=== PATIENT | female | born 1980 | race African-American/Black ===

== ENCOUNTER 2017-01-07 17:56 | Observation (INO) | payer OTHER ==
[~2017-01-07] VITALS: Ht 152.4 cm; Wt 53.5 kg
[~2017-01-07 17:56] MED LIST: EFFSR75 PO; INSDGI SQ; LSN5 PO
[2017-01-07] MEDS ORDERED: NITROGLYCERIN 0.4 MG SL PER TAB CHARGE SL PRN ×2 (18:45→20:45)
[2017-01-07 18:48] LABS: BASO % 0.5 %; BASO ABS # 0.04 K/uL (0-0.2); COMPLETE YES; EOS % 1.9 %; HEMATOCRIT 45.4 % (37-47); IG% 0.6 %; LYMPH % 23.2 %; LYMPH ABS # 1.99 K/uL (1.2-3.4); MEAN CELL VOLUME 91.2 fL (80-100); MEAN CORPUSCULAR HEMOGLOBIN 31.7 pg (25-34); MEAN CORPUSCULAR HGB CONC 34.8 g/dl (32-36); NEUT % 68.8 %; PLATELET COUNT 399 K/uL (130-400); RED BLOOD COUNT 4.98 M/uL (4.2-5.4); WHITE BLOOD COUNT 8.57 K/uL (4.8-10.8)
[2017-01-07] MEDS ORDERED: NITROGLYCERIN OINT 2% 1GM PACKET EXT ONE (19:00)
--- NOTE | 2017-01-07 19:06 | DIAGNOSTIC IMAGING REPORT ---
CHEST ONE VIEW PORTABLE CLINICAL HISTORY: Atypical chest pain and shortness of breath. COMPARISON STUDY: No previous studies for comparison. FINDINGS: The cardiac and mediastinal contours are normal. There is no evidence of focal pulmonary consolidation. There is no evidence of failure. No pleural effusions are visualized.[ IMPRESSION: No active disease in the chest. Electronically signed by: Landon Alford M.D. 01/07/2017 7:04 PM Dictated Date/Time: 01/07/2017 7:04 PM
[2017-01-07 19:07] LABS: BUN/CREATININE RATIO 8.1 (10-20); CALCIUM 9.3 mg/dl (8.5-10.1); CREATININE 0.85 mg/dl (0.60-1.20); POTASSIUM 3.3 mmol/L (3.5-5.1); PREG INTERNAL NEGATIVE QC NEG CLEAR BACKGROUND; PREG INTERNAL POSITIVE QC POS CONTROL LINE
[2017-01-07] MEDS ORDERED: VNTHFA/IN INH (19:07)
[2017-01-07] MEDS ORDERED: MTHI50 INJ (19:07)
[2017-01-07 19:16] LABS: BETA-HYDROXYBUTYRATE 1.12 mg/dL (0.2-2.81)
[2017-01-07] MEDS ORDERED: ASPIRIN 81 MG CHEW PO STA (19:50)
[2017-01-07] MEDS ORDERED: POTASSIUM CHLORIDE 10 MEQ TABCR PO STA (20:10)
[2017-01-07] MEDS ORDERED: INSULIN GLARGINE SOLOSTAR 100 UNITS/ML 3 ML PEN SC ONE (20:39)
[2017-01-07] MEDS ORDERED: DEXTROSE 50% 50 ML SYR IV PRN (20:45)
[2017-01-07] MEDS ORDERED: GLUCOSE 10 TABS/TUBE PO PRN (20:45)
[2017-01-07] MEDS ORDERED: TRAMADOL HCL 50 MG TAB PO PRN (20:45)
[2017-01-07] MEDS ORDERED: GLUCAGON FOR INJ 1 MG VIAL SQ PRN (20:45)
[2017-01-07] MEDS ORDERED: LORAZEPAM 2 MG/ML 1 ML VIAL IV PRN (20:45)
[2017-01-07] MEDS ORDERED: MoRPHine SULFATE 2 MG/ML CARP IV PRN (20:45)
[2017-01-07] MEDS ORDERED: ONDANSETRON INJ 2 MG/ML 2 ML VIAL IV PRN (20:45)
[2017-01-07] MEDS ORDERED: ACETAMINOPHEN 325 MG TAB PO PRN (20:45)
[2017-01-07] MEDS ORDERED: GLUCOSE 40% GEL 15 GM TUBE PO PRN (20:45)
[2017-01-07] MEDS ORDERED: LANTUS PER UNIT CHARGE SQ ONE (21:00)
[2017-01-07] MEDS ORDERED: IV FLUIDS COMPLETED PRN (21:15)
--- NOTE | 2017-01-07 22:18 | HISTORY & PHYSICAL EXAMINATION ---
DATE OF ADMISSION: 01/07/2017 PRIMARY CARE DOCTOR: Dr. Sin History was obtained from the patient and records. CHIEF COMPLAINT: Chest pain. HISTORY OF PRESENT ILLNESS: Medical history is significant for DM type 1, hypertension, hyperlipidemia, psoriatic arthritis on methotrexate therapy, ongoing tobacco abuse. Patient was playing cards today with a friend. Patient noted left-sided chest discomfort, sharp, going to the left arm. Has dry cough symptoms. No previous episodes. Relief with nitroglycerin. SBP 170s in the ER initially. Patient does not check blood pressures at home. MEDICAL HISTORY: As above. Home Blood sugars 300. SURGICAL HISTORY: Dental surgery. HOME MEDICATIONS: Lisinopril, aspirin, folic acid, betamethasone, Ventolin, Lipitor and methotrexate. ALLERGIES: TO NIACIN. FAMILY HISTORY: Heart disease. PERSONAL AND SOCIAL HISTORY: A cigarette a day. No chronic intake of alcoholic beverages. Unemployed. REVIEW OF SYSTEMS: As per HPI, all other ROS negative. PHYSICAL EXAMINATION: VITAL SIGNS: Blood pressure was noted to be 177/108 later 130/80, pulse rate 96, RR 20 T 37 O2 sats 98 on room air. GENERAL: Slightly anxious, hyposthenic. No respiratory distress. SKIN: Normal color. HEENT: [place] palpebral conjunctivae. Dry mucosa. NECK: No JVD. Supple. CHEST: Clear to auscultation. HEART: Regular rate and rhythm. ABDOMEN: Soft. EXTREMITIES: No edema, no tenderness. NEUROLOGIC: No gross focality. LABORATORIES: Hemoglobin was noted to be 15.8, hematocrit 45.4 white cell count 10 platelets 399. Sodium 140, potassium 3.3, chloride 100 CO2 32, BUN 7, creatinine 0.8 and glucose was noted to be 317. Troponin 0. D-dimer was normal. Hemoglobin A1c from March 2016 was 12.7. EKG as per my interpretation : T-wave inversions in inferior and anterolateral leads. Chest x-ray : no infiltrate. ASSESSMENT: 1. Chest pain poss from hypertensive urgency ro ACS 2. DM 1 suboptimal control as of recent outpx HgA1c 3. hypokalemia possibly from home insulin tx 4. hyperlipidemia on statin therapy 5. ongoing tobacco abuse 6. psoriatic arthritis on MTRX tx PLAN: Observation PCU continue home ASA for now for CAD prevention until ACS ruled out. facilitate ACEI, may need dose adjustment Follow troponin. drug stress test if AM troponin WNL (px does not think she can run the treadmill ) Cardiology consultation if with troponin elevation. (px's family requesting of [facility] should need arise) replace potassium. Basal insulin, ISS BG goal 140-180. Carb count coverage indicated for suboptimal blood sugar control. px due for HgA1c. Lipid profile. May need diabetic education if HgA1c worse than outpx. PX counseled to stop smoking. DVT prophylaxis, SCDs. Full code. MTDD
[2017-01-07 22:26] VITALS: BP 151/97; PULSE 86; TEMP 36.8; O2SAT 95; BMI 23.4
[2017-01-07] MEDS ORDERED: LORAZEPAM INJ 0.5 MG in SYRINGE 0.75 ML IV PRN (22:30)
[2017-01-07] MEDS ORDERED: INSU100I2 SC (22:36)
[2017-01-07] MEDS ORDERED: ATOR-24 PO (22:36)
[2017-01-07] MEDS: LACTATED RINGER'S 1000ML 1,000 ML IV SCH (22:39)
[2017-01-07 23:40] LABS: PARTIAL THROMBOPLASTIN RATIO 1.1
[2017-01-07] MEDS: INSULIN ASPART 100 UNITS/ML 3 ML PEN SC SCH (23:47)
[2017-01-08] VITALS (7 sets, daily range): BP systolic 107–137; BP diastolic 71–89; PULSE 59–85; TEMP 36.4–36.8; O2SAT 96–100; Ht 152.4 cm; Wt 53.5 kg
--- NOTE | 2017-01-08 01:25 | EMERGENCY ROOM VISIT NOTE ---
History Report prepared by Miranda: Trevon Witt Under the Supervision of: Dr. Placido Sanchez M.D. First contact with patient: 18:27 Chief Complaint: CHEST PAIN Stated Complaint: CHEST PAINS,SHORT OF BREATH Nursing Triage Summary: Pt presents with CP starting today, stabbing like pain radiating into left arm. Denies cardiac hx. History of Present Illness The patient is a 36 year old female who presents to the Emergency Room with complaints of worsening left sided chest pain starting today. She describes it as a stabbing pain. She has worsening pain with deep breathing. She was sitting at the table and playing cards when she had an onset of her symptoms. She currently rates a pain intensity of 8/10. She also complains of a cough. She denies any history of similar symptoms. She has a history of diabetes. The patient's mother had a heart attack in her 50s. The patient is a current smoker. Her last normal menstrual period was last week. Pt denies LOC, headache, fevers, chills, diaphoresis, visual changes, neck pain , tearing pain radiating to the back, personal history or family history of aneurysm or pulmonary embolism, uncontrolled hypertension, breathing difficulties, leg swelling, coagulation abnormalities, prolonged travel, recent surgery or immobilization, nausea, vomiting, abdominal pain, melena, hematochezia, urinary symptoms, numbness, weakness, lymphadenopathy, rash, or other complaints. Source of History: patient Onset: today Position: chest (left) Symptom Intensity: 8/10 Quality: stabbing Timing: worsening Associated Symptoms: + cough Review of Systems See HPI for pertinent positives and negatives. A total of ten systems were reviewed and were otherwise negative. Past Medical & Surgical Medical Problems: (1) Cervical muscle strain (2) Chest pain (3) Closed head injury (4) Diabetes (5) Hypertension (6) Psoriasis Family History Diabetes mellitus Hypertension Social History Smoking Status: Current Every Day Smoker Marital Status: single Housing Status: unknown Occupation Status: employed Current/Historical Medications Scheduled Atorvastatin (Lipitor), 40 MG PO DAILY Insulin Glargine (Lantus), 50 UNITS SQ HS Insulin Lispro (Human) (Humalog Kwikpen), 1 DOSE SC ACHS Lisinopril (Lisinopril), 5 MG PO DAILY Methotrexate (Methotrexate Sodium), 40 MG INJ WK Scheduled PRN Albuterol Hfa (Ventolin Hfa), 2 PUFFS INH QID PRN for SOB/Wheezing Allergies Coded Allergies: Niacin (Verified Allergy, Unknown, rash, 09/19/14) Physical Exam Vital Signs Date Time Temp Pulse Resp B/P Pulse Ox O2 Delivery O2 Flow Rate FiO2 01/07/17 20:01 141/94 01/07/17 19:31 151/96 01/07/17 19:30 77 26 97 01/07/17 19:21 78 18 152/96 97 Room Air 01/07/17 19:16 83 01/07/17 18:46 96 21 149/94 100 01/07/17 18:42 99 Room Air 01/07/17 17:59 36.9 93 20 177/108 99 Room Air Physical Exam GENERAL: Awake, alert, uncomfortable-appearing, in no distress HENT: Normocephalic, atraumatic. Oropharynx unremarkable. EYES: Normal conjunctiva. Sclera non-icteric. NECK: Supple. No nuchal rigidity. FROM. No JVD. RESPIRATORY: Clear to auscultation. CARDIAC: Regular rate, normal rhythm. Extremities warm and well perfused. Pulses equal. ABDOMEN: Soft, non-distended. No tenderness to palpation. No rebound or guarding. No masses. RECTAL: Deferred. MUSCULOSKELETAL: Chest examination reveals left sided tenderness. The back is symmetrical on inspection without obvious abnormality. There is no CVA tenderness to palpation. No joint edema. LOWER EXTREMITIES: Calves are equal size bilaterally and non-tender. No edema. No discoloration. NEURO: Normal sensorium. No sensory or motor deficits noted. SKIN: No jaundice noted. Psoriasis type rash in lower extremities. Medical Decision & Procedures ER Provider Diagnostic Interpretation: X-ray: Per my interpretation, radiologist review. CHEST ONE VIEW PORTABLE CLINICAL HISTORY: Atypical chest pain and shortness of breath. COMPARISON STUDY: No previous studies for comparison. FINDINGS: The cardiac and mediastinal contours are normal. There is no evidence of focal pulmonary consolidation. There is no evidence of failure. No pleural effusions are visualized.[ IMPRESSION: No active disease in the chest. Electronically signed by: Landon Alford M.D. 01/07/2017 7:04 PM Dictated Date/Time: 01/07/2017 7:04 PM Laboratory Results 01/07/17 18:34 Red Blood Count 4.98, Mean Corpuscular Volume 91.2, Mean Corpuscular Hemoglobin 31.7, Mean Corpuscular Hemoglobin Concent 34.8, Mean Platelet Volume 10.0, Neutrophils (%) (Auto) 68.8, Lymphocytes (%) (Auto) 23.2, Monocytes (%) (Auto) 5.0, Eosinophils (%) (Auto) 1.9, Basophils (%) (Auto) 0.5, Neutrophils # (Auto) 5.90, Lymphocytes # (Auto) 1.99, Monocytes # (Auto) 0.43, Eosinophils # (Auto) 0.16, Basophils # (Auto) 0.04 01/07/17 18:34 Test 01/07/17 18:34 01/07/17 18:40 White Blood Count 8.57 K/uL (4.8-10.8) Red Blood Count 4.98 M/uL (4.2-5.4) Hemoglobin 15.8 g/dL (12.0-16.0) Hematocrit 45.4 % (37-47) Mean Corpuscular Volume 91.2 fL (80-100) Mean Corpuscular Hemoglobin 31.7 pg (25-34) Mean Corpuscular Hemoglobin Concent 34.8 g/dl (32-36) Platelet Count 399 K/uL (130-400) Mean Platelet Volume 10.0 fL (7.4-10.4) Neutrophils (%) (Auto) 68.8 % Lymphocytes (%) (Auto) 23.2 % Monocytes (%) (Auto) 5.0 % Eosinophils (%) (Auto) 1.9 % Basophils (%) (Auto) 0.5 % Neutrophils # (Auto) 5.90 K/uL (1.4-6.5) Lymphocytes # (Auto) 1.99 K/uL (1.2-3.4) Monocytes # (Auto) 0.43 K/uL (0.11-0.59) Eosinophils # (Auto) 0.16 K/uL (0-0.5) Basophils # (Auto) 0.04 K/uL (0-0.2) RDW Standard Deviation 42.4 fL (36.4-46.3) RDW Coefficient of Variation 12.8 % (11.5-14.5) Immature Granulocyte % (Auto) 0.6 % Immature Granulocyte # (Auto) 0.05 K/uL (0.00-0.02) Anion Gap 7.0 mmol/L (3-11) Est Creatinine Clear Calc Drug Dose 78.2 ml/min Estimated GFR () 102.9 Estimated GFR (Non- 88.8 BUN/Creatinine Ratio 8.1 (10-20) Calcium Level 9.3 mg/dl (8.5-10.1) Magnesium Level 2.2 mg/dl (1.8-2.4) Total Bilirubin 0.8 mg/dl (0.2-1) Direct Bilirubin 0.1 mg/dl (0-0.2) Aspartate Amino Transf (AST/SGOT) 7 U/L (15-37) Alanine Aminotransferase (ALT/SGPT) 15 U/L (12-78) Alkaline Phosphatase 76 U/L (45-117) Total Creatine Kinase 86 U/L (26-192) Creatine Kinase MB 0.9 ng/ml (0.5-3.6) Creatine Kinase MB Ratio 1.0 (0-3.0) Total Protein 8.4 gm/dl (6.4-8.2) Albumin 4.4 gm/dl (3.4-5.0) Lipase 103 U/L (73-393) Beta-Hydroxybutyric Acid 1.12 mg/dL (0.2-2.81) Thyroid Stimulating Hormone (TSH) 0.535 uIu/ml (0.300-4.500) Human Chorionic Gonadotropin, Qual NEG (NEG) Bedside D-Dimer 154 ng/mlFEU (0-450) Bedside Troponin I 0.000 ng/ml (0-0.045) Laboratory results reviewed by me Medications Administered Medications (Trade) Dose Ordered Sig/Catihe Route Start Time Stop Time Status Last Admin Dose Admin Nitroglycerin (Nitrostat Tab) 0.4 mg Q5M PRN SL 01/07/17 18:45 01/07/17 20:11 DC 01/07/17 18:42 0.4 MG Nitroglycerin (Nitroglycerin 2% Oint) 0.5 inch NOW ONCE EXT 01/07/17 19:00 01/07/17 20:11 DC 01/07/17 19:19 0.5 INCH Aspirin (Aspirin Chew) 324 mg NOW STAT PO 01/07/17 19:50 01/07/17 19:51 DC 01/07/17 20:42 324 MG Potassium Chloride (Klor-Con M10) 40 meq NOW STAT PO 01/07/17 20:10 01/07/17 20:23 DC 01/07/17 20:42 40 MEQ ECG Indication: chest pain Rate (beats per minute): 81 Rhythm: normal sinus Findings: T-wave inversion (inferior and anterior), no ectopy Comparison ECG Date: October 25, 2008 Change: T wave inversions anteriorly are new and much more pronounced inferiorly when compared to October 25, 2008. ED Course 1826: The patient was evaluated in room B08. A complete history and physical exam was performed. Blood pressure screening: Patient was found to have an elevated blood pressure and was referred to their primary doctor for recheck and further treatment. Medication Reconciliation: I attest that I have personally reviewed the patient' s current medication list 1845: Nitroglycerin 0.4 mg SL 1899: Nitroglycerin 0.5 inch EXT 1900: The patient's chest pain is gone after receiving Nitro. 1950: Aspirin 324 mg PO 2009: Potassium Chloride 40 meq PO 2000: Upon reexamination, the patient was resting comfortably. I discussed the test results and treatment plan with her. I discussed the patient's case with Dr. Aquino, from [facility]. The patient will be evaluated for further management. Medical Decision Triage Nursing notes reviewed. The patient's presentation and history were concerning for chest pain. Etiologies such as cardiac ischemia, aortic dissection, pulmonary embolism, pneumonia, pneumothorax, musculoskeletal, infections, gastrointestinal, as well as others were entertained. The patient was evaluated. Clinically she was doing well but was hypertensive and expressing left-sided pain. ECG was performed was concerning for possible ischemic change. She had no prior ECGs available here so I did obtain an ECG done at the [facility] through case management. This did reveal concerning findings with regards to the ECG today. The patient was given nitroglycerin 2 and the pain resolved. She was reassessed. She was given aspirin. Nitroglycerin paste was applied. Chest imaging was unremarkable. The patient's troponin, d-dimer, CBC and other testing were unremarkable. The patient was mildly hyperglycemic. Consultation was made with internal medicine. The patient was evaluated in the Emergency Room for further management. Consults Time Called: 1948 Consulting Physician: Dr. Aquino, from [facility] Returned Call: 1999 I discussed the patient's case with Dr. Aquino, from [facility]. Impression Primary Impression: Left sided chest pain Additional Impressions: Acute electrocardiogram changes Hypertensive crisis Scribe Attestation The scribe's documentation has been prepared under my direction and personally reviewed by me in its entirety. I confirm that the note above accurately reflects all work, treatment, procedures, and medical decision making performed by me. Departure Information Dispostion Being Evaluated By Hospitalist Referrals No Doctor, Assigned (PCP) Patient Instructions [facility] Problem Qualifiers
[2017-01-08 05:00] LABS: BASO % 0.6 %; BASO ABS # 0.05 K/uL (0-0.2); COMPLETE YES; EOS % 2.6 %; IG% 0.1 %; LYMPH % 27.7 %; LYMPH ABS # 2.22 K/uL (1.2-3.4); MEAN CELL VOLUME 91.1 fL (80-100); MEAN PLATELET VOLUME 9.5 fL (7.4-10.4); MONO % 5.7 %; NEUT % 63.3 %; PLATELET COUNT 336 K/uL (130-400); RED BLOOD COUNT 4.39 M/uL (4.2-5.4); WHITE BLOOD COUNT 8.01 K/uL (4.8-10.8)
[2017-01-08 05:10] LABS: ESTIMATED AVERAGE GLUCOSE 263 mg/dl; HA1C FLAG Normal (Normal)
[2017-01-08] MEDS: INSULIN ASPART 100 UNITS/ML 3 ML PEN SC SCH ×3 (08:16→17:06)
[2017-01-08 08:46] LABS: BASO % 0.7 %; BASO ABS # 0.06 K/uL (0-0.2); COMPLETE YES; EOS % 2.2 %; HEMATOCRIT 42.5 % (37-47); IG% 0.1 %; LYMPH % 22.8 %; LYMPH ABS # 1.85 K/uL (1.2-3.4); MEAN CELL VOLUME 91.8 fL (80-100); MEAN CORPUSCULAR HEMOGLOBIN 30.9 pg (25-34); MEAN CORPUSCULAR HGB CONC 33.6 g/dl (32-36); MONO % 5.8 %; NEUT % 68.4 %; PLATELET COUNT 339 K/uL (130-400); RED BLOOD COUNT 4.63 M/uL (4.2-5.4); WHITE BLOOD COUNT 8.13 K/uL (4.8-10.8)
[2017-01-08] MEDS ORDERED: ASPIRIN 325 MG ECTAB PO SCH (09:00)
[2017-01-08] MEDS ORDERED: LISINOPRIL 5 MG TAB PO SCH (09:00)
[2017-01-08] MEDS ORDERED: ATORVASTATIN 20 MG TAB PO SCH (09:00)
[2017-01-08] MEDS ORDERED: INSULIN GLARGINE SOLOSTAR 100 UNITS/ML 3 ML PEN SC SCH (09:00)
[2017-01-08 09:11] LABS: CARBON DIOXIDE 30 mmol/L (21-32); CHLORIDE 106 mmol/L (98-107); CHOLESTEROL 222 mg/dl (0-200); CREATININE 0.76 mg/dl (0.60-1.20); GLUCOSE 207 mg/dl (70-99); POTASSIUM 3.7 mmol/L (3.5-5.1); SODIUM 144 mmol/L (136-145); TRIGLYCERIDES 246 mg/dl (0-150); VERY LOW DENSITY LIPOPROT CALC 49 mg/dl
[2017-01-08 09:15] LABS: CALCIUM 9.1 mg/dl (8.5-10.1); CHOLESTEROL/HDL RATIO 5.4; HDL CHOLESTEROL 41 mg/dl; LDL CHOLESTEROL CALCULATED 132 mg/dl
[2017-01-08 09:31] LABS: BLOOD UREA NITROGEN 11 mg/dl (7-18)
[2017-01-08] MEDS ORDERED: METOPROLOL TARTRATE 1 MG/ML VIAL ONE (14:03)
[2017-01-08] MEDS ORDERED: ATROPINE SULFATE 0.1 MG/ML 5ML SYR ONE (14:03)
[2017-01-08] MEDS ORDERED: DOBUTamine HCL 12.5 MG/ML 20 ML VIAL ONE (14:03)
[2017-01-08] MEDS: LACTATED RINGER'S 1000ML 1,000 ML IV SCH (15:10)
[2017-01-08] MEDS ORDERED: NURSING VERBAL MED ORDER ONE (15:30)
--- NOTE | 2017-01-08 15:56 | DOBUTAMINE ECHO ---
*NOTICE TO RECEIVING REPUBLICAN AGENCY This information is strictly Confidential and protected under [place] law. [place] law prohibits you from making any further disclosure of this information unless further disclosure is expressly permitted by the written consent of the person to whom it pertains or is authorized by law. A general authorization for the release of medical or other information is not sufficient for this purpose. Hospital accepts no responsibility if the information is made available to any other person, INCLUDING THE PATIENT. Interpretation Summary * Name: MAURICE HUNTER Study Date: 01/08/2017 01:11 PM BP: 118/70 mmHg * Patient Location: [facility]\S\N277\S\1 HR: 64 * : 1980 (M/d/yyyy) Gender: Female Height: 60 in * Age: 36 yrs Ethnicity: AA Weight: 117 lb * Ordering Physician: Dharmesh Aquino * Referring Physician: Self, Referred * Performed By: Keturah Dumas RCS * * Reason For Study: CHEST PAIN * BSA: 1.5 m2 * STRESS STUDY: Normal pharmacologic stress echocardiogram. No echocardiographic or ECG evidence of myocardial ischemia having achieved heart rate adequate for diagnostic purposes. Procedure Details * DOBUTAMINE ECHO, CPT#[id number] * ECHO COLOR FLOW, CPT #[id number] * ECHO DOPPLER, CPT #[id number] Left Ventricle * The left ventricle is normal in size. * There is mild concentric left ventricular hypertrophy. * Left ventricular systolic function is normal. * Ejection Fraction = 60-65%. * The left ventricular wall motion is normal at rest. * The left ventricular ejection fraction increases normally with stress. The left ventricular end-systolic cavity size reduces post-stress (normal response). The left ventricular wall motion with stress is normal. Right Ventricle * The right ventricle is normal in size and function. Atria * The left atrial size is normal. * Right atrial size is normal. * No ASD detected; PFO is not assessed. Mitral Valve * The mitral valve is normal. * There is no mitral valve stenosis. * Significant mitral regurgitation is absent. Tricuspid Valve * The tricuspid valve is normal. * There is no tricuspid stenosis. * Significant tricuspid regurgitation is absent. Aortic Valve * The aortic valve is trileaflet. * Aortic stenosis is absent. * There is no significant aortic regurgitation. Pulmonic Valve * The pulmonary valve is not well seen, but the Doppler examination is normal without significant regurgitation or stenosis. Great Vessels * The aortic root and proximal ascending aorta are normal sized. Pericardium * There is no pericardial effusion. Stress Parameters * The stress portion of this study was personally supervised by the undersigned interpreting physician. * Rest heart rate was '64' BPM. * Rest blood pressure was '118/70' * Maximum heart rate achieved was 164 bpm. * Maximum heart rate was 88 % of maximum age-predicted heart rate. * Maximum blood pressure was '187/76' * Maximum Dobutamine infusion rate was '40' mcg/kg/min. * A total of 0.5 mg of intravenous Atropine was used to supplement Dobutamine for heart rate response. * Dobutamine infusion was terminated due to achieving target heart rate * A total of 10 mg of IV Metoprolol was administered to reverse Dobutamine-induced tachycardia. MMode 2D Measurements and Calculations IVSd 1.2 cm IVSs 1.6 cm LVIDd 4.2 cm LVIDs 2.9 cm LVPWd 0.86 cm LVPWs 1.1 cm IVS/LVPW 1.4 FS 30.4 % EDV(Teich) 78.2 ml ESV(Teich) 32.7 ml EF(Teich) 58.2 % EDV(cubed) 73.6 ml ESV(cubed) 24.8 ml EF(cubed) 66.3 % % IVS thick 34.1 % % LVPW thick 32.3 % LV mass(C)d 138.8 grams LV mass(C)dI 93.4 grams/m\S\2 LV mass(C)s 127.1 grams LV mass(C)sI 85.5 grams/m\S\2 SV(Teich) 45.5 ml SI(Teich) 30.6 ml/m\S\2 SV(cubed) 48.8 ml SI(cubed) 32.8 ml/m\S\2 Ao root diam 2.5 cm Ao root area 5.1 cm\S\2 LA dimension 2.5 cm LA/Ao 10 LVOT diam 2.0 cm LVOT area 3.1 cm\S\2 LVAd ap4 28.0 cm\S\2 LVLd ap4 7.5 cm EDV(MOD-sp4) 84.8 ml EDV(sp4-el) 88.1 ml LVAs ap4 17.1 cm\S\2 LVLs ap4 6.4 cm ESV(MOD-sp4) 37.4 ml ESV(sp4-el) 38.7 ml EF(MOD-sp4) 55.9 % EF(sp4-el) 56.1 % LVAd ap2 22.6 cm\S\2 LVLd ap2 7.0 cm EDV(MOD-sp2) 64.7 ml EDV(sp2-el) 62.3 ml LVAs ap2 13.2 cm\S\2 LVLs ap2 5.7 cm ESV(MOD-sp2) 26.6 ml ESV(sp2-el) 26.0 ml EF(MOD-sp2) 58.8 % EF(sp2-el) 58.3 % LVLd %diff -8.22 % EDV(MOD-bp) 76.9 ml LVLs %diff -11.89 % ESV(MOD-bp) 33.2 ml EF(MOD-bp) 56.8 % SV(MOD-sp4) 47.4 ml SI(MOD-sp4) 31.9 ml/m\S\2 SV(MOD-sp2) 38.0 ml SI(MOD-sp2) 25.6 ml/m\S\2 SV(MOD-bp) 43.7 ml SI(MOD-bp) 29.4 ml/m\S\2 SV(sp4-el) 49.4 ml SI(sp4-el) 33.2 ml/m\S\2 SV(sp2-el) 36.3 ml SI(sp2-el) 24.4 ml/m\S\2 Doppler Measurements and Calculations MV E max margo 93.8 cm/sec MV A max margo 50.1 cm/sec MV E/A 1.9 MV P1/2t max margo 99.2 cm/sec MV P1/2t 101.2 msec MVA(P1/2t) 2.2 cm\S\2 MV dec slope 287.1 cm/sec\S\2 MV dec time 0.21 sec Ao V2 max 133.0 cm/sec Ao max PG 7.1 mmHg Ao max PG (full) 4.2 mmHg EDMOND(V,A) 2.0 cm\S\2 EDMOND(V,D) 2.0 cm\S\2 LV V1 max PG 2.9 mmHg LV V1 max 85.2 cm/sec PA V2 max 87.1 cm/sec PA max PG 3.0 mmHg
--- NOTE | 2017-01-08 16:23 | Progress Note ---
Internal Med Progress Note Date of Service: Jan 08, 2017. Provider Documentation: SUBJECTIVE: The patient was seen and examined No more pain since admission OBJECTIVE: Vital Signs-as noted below Exam: General-no distress at rest Eyes-normal ENT-normal Neck-supple Lungs-clear to ausucltate bilaterally Heart-regular,no murmur appreciated Abdomen-Benign,no masses,bowel sound present Extremities-No edema Neuro-AAOx3 Lab data as noted below. ASSESSMENT & PLAN: Chest pain poss from hypertensive urgency No more pain since admission Serial Eh and EKG -no ACS S/P Negative DSE :: STRESS STUDY: Normal pharmacologic stress echocardiogram. No echocardiographic or ECG evidence of myocardial ischemia having achieved heart rate adequate for diagnostic purposes. Left Ventricle * The left ventricle is normal in size. * There is mild concentric left ventricular hypertrophy. * Left ventricular systolic function is normal. * Ejection Fraction = 60-65%. * The left ventricular wall motion is normal at rest. * The left ventricular ejection fraction increases normally with stress. The left ventricular end-systolic cavity size reduces post-stress (normal response). The left ventricular wall motion with stress is normal. Discharge home HTN continue home ASA for now for CAD prevention until ACS ruled out. facilitate ACEI, may need dose adjustment BP controlled DM 1 -Uncontrolled ;;[id number] at 10.8 Suboptimal control as of recent outpx HgA1c Basal insulin, ISS BG goal 140-180. Carb count coverage indicated for suboptimal blood sugar control. Hypokalemia possibly from home insulin tx Hyperlipidemia on statin therapy Ongoing tobacco abuse Advised to quit DVT prophylaxis, SCDs. Full code. Vital Signs: Date Time Temp Pulse Resp B/P (MAP) Pulse Ox O2 Delivery O2 Flow Rate FiO2 01/08/17 16:00 Room Air 01/08/17 15:12 36.4 85 18 122/85 (97) 100 Room Air 01/08/17 12:15 36.8 73 18 107/74 (85) 99 Room Air 01/08/17 12:00 Room Air 01/08/17 08:51 36.6 74 18 137/89 (105) 98 Room Air 01/08/17 08:00 Room Air 01/08/17 05:23 36.7 67 20 117/71 (86) 98 Room Air 01/08/17 04:05 Room Air 01/08/17 00:16 36.8 59 20 130/82 (98) 96 Room Air 01/08/17 00:05 96 Room Air 01/07/17 22:26 36.8 86 16 151/97 95 Room Air 01/07/17 21:45 36.9 90 15 148/95 98 01/07/17 21:30 95 15 01/07/17 21:01 139/94 01/07/17 20:31 145/92 01/07/17 20:31 145/92 01/07/17 20:30 81 21 98 Room Air 01/07/17 20:30 81 21 98 01/07/17 20:01 141/94 01/07/17 19:31 151/96 01/07/17 19:30 77 26 97 01/07/17 19:21 78 18 152/96 97 Room Air 01/07/17 19:16 83 01/07/17 18:46 96 21 149/94 100 01/07/17 18:42 99 Room Air 01/07/17 17:59 36.9 93 20 177/108 99 Room Air Lab Results: Results Past 24 Hours Test 01/07/17 18:34 01/07/17 18:40 01/07/17 20:55 01/07/17 22:36 Range/Units White Blood Count 8.57 4.8-10.8 K/uL Red Blood Count 4.98 4.2-5.4 M/uL Hemoglobin 15.8 12.0-16.0 g/dL Hematocrit 45.4 37-47 % Mean Corpuscular Volume 91.2 80-100 fL Mean Corpuscular Hemoglobin 31.7 25-34 pg Mean Corpuscular Hemoglobin Concent 34.8 32-36 g/dl Platelet Count 399 130-400 K/uL Mean Platelet Volume 10.0 7.4-10.4 fL Neutrophils (%) (Auto) 68.8 % Lymphocytes (%) (Auto) 23.2 % Monocytes (%) (Auto) 5.0 % Eosinophils (%) (Auto) 1.9 % Basophils (%) (Auto) 0.5 % Neutrophils # (Auto) 5.90 1.4-6.5 K/uL Lymphocytes # (Auto) 1.99 1.2-3.4 K/uL Monocytes # (Auto) 0.43 0.11-0.59 K/uL Eosinophils # (Auto) 0.16 0-0.5 K/uL Basophils # (Auto) 0.04 0-0.2 K/uL RDW Standard Deviation 42.4 36.4-46.3 fL RDW Coefficient of Variation 12.8 11.5-14.5 % Immature Granulocyte % (Auto) 0.6 % Immature Granulocyte # (Auto) 0.05 0.00-0.02 K/uL Sodium Level 140 136-145 mmol/L Potassium Level 3.3 3.5-5.1 mmol/L Chloride Level 101 98-107 mmol/L Carbon Dioxide Level 32 21-32 mmol/L Anion Gap 7.0 3-11 mmol/L Blood Urea Nitrogen 7 7-18 mg/dl Creatinine 0.85 0.60-1.20 mg/dl Est Creatinine Clear Calc Drug Dose 78.2 ml/min Estimated GFR () 102.9 Estimated GFR (Non- 88.8 BUN/Creatinine Ratio 8.1 10-20 Random Glucose 317 70-99 mg/dl Estimated Average Glucose 263 mg/dl Hemoglobin A1c 10.8 4.5-5.6 % Calcium Level 9.3 8.5-10.1 mg/dl Magnesium Level 2.2 1.8-2.4 mg/dl Total Bilirubin 0.8 0.2-1 mg/dl Direct Bilirubin 0.1 0-0.2 mg/dl Aspartate Amino Transf (AST/SGOT) 7 15-37 U/L Alanine Aminotransferase (ALT/SGPT) 15 12-78 U/L Alkaline Phosphatase 76 45-117 U/L Total Creatine Kinase 86 26-192 U/L Creatine Kinase MB 0.9 0.5-3.6 ng/ml Creatine Kinase MB Ratio 1.0 0-3.0 Total Protein 8.4 6.4-8.2 gm/dl Albumin 4.4 3.4-5.0 gm/dl Lipase 103 73-393 U/L Beta-Hydroxybutyric Acid 1.12 0.2-2.81 mg/dL Thyroid Stimulating Hormone (TSH) 0.535 0.300-4.500 uIu/ml Human Chorionic Gonadotropin, Qual NEG NEG Bedside D-Dimer 154 0-450 ng/mlFEU Bedside Troponin I 0.000 0-0.045 ng/ml Bedside Glucose 252 362 70-90 mg/dl Test 01/07/17 23:12 01/08/17 04:50 01/08/17 07:23 01/08/17 08:11 Range/Units Activated Partial Thromboplast Time 28.6 21.0-31.0 SECONDS Partial Thromboplastin Ratio 1.1 Troponin I < 0.015 < 0.015 0-0.045 ng/ml White Blood Count 8.01 8.13 4.8-10.8 K/uL Red Blood Count 4.39 4.63 4.2-5.4 M/uL Hemoglobin 13.6 14.3 12.0-16.0 g/dL Hematocrit 40.0 42.5 37-47 % Mean Corpuscular Volume 91.1 91.8 80-100 fL Mean Corpuscular Hemoglobin 31.0 30.9 25-34 pg Mean Corpuscular Hemoglobin Concent 34.0 33.6 32-36 g/dl Platelet Count 336 339 130-400 K/uL Mean Platelet Volume 9.5 10.0 7.4-10.4 fL Neutrophils (%) (Auto) 63.3 68.4 % Lymphocytes (%) (Auto) 27.7 22.8 % Monocytes (%) (Auto) 5.7 5.8 % Eosinophils (%) (Auto) 2.6 2.2 % Basophils (%) (Auto) 0.6 0.7 % Neutrophils # (Auto) 5.06 5.56 1.4-6.5 K/uL Lymphocytes # (Auto) 2.22 1.85 1.2-3.4 K/uL Monocytes # (Auto) 0.46 0.47 0.11-0.59 K/uL Eosinophils # (Auto) 0.21 0.18 0-0.5 K/uL Basophils # (Auto) 0.05 0.06 0-0.2 K/uL RDW Standard Deviation 42.2 43.1 36.4-46.3 fL RDW Coefficient of Variation 12.6 12.8 11.5-14.5 % Immature Granulocyte % (Auto) 0.1 0.1 % Immature Granulocyte # (Auto) 0.01 0.01 0.00-0.02 K/uL Bedside Glucose 188 70-90 mg/dl Sodium Level 144 136-145 mmol/L Potassium Level 3.7 3.5-5.1 mmol/L Chloride Level 106 98-107 mmol/L Carbon Dioxide Level 30 21-32 mmol/L Anion Gap 8.0 3-11 mmol/L Blood Urea Nitrogen 11 7-18 mg/dl Creatinine 0.76 0.60-1.20 mg/dl Est Creatinine Clear Calc Drug Dose 74.2 ml/min Estimated GFR () 117.8 Estimated GFR (Non- 101.6 BUN/Creatinine Ratio 15.0 10-20 Random Glucose 207 70-99 mg/dl Calcium Level 9.1 8.5-10.1 mg/dl Triglycerides Level 246 0-150 mg/dl Cholesterol Level 222 0-200 mg/dl HDL Cholesterol 41 mg/dl LDL Cholesterol, Calculated 132 mg/dl VLDL Cholesterol, Calculated 49 mg/dl Cholesterol/HDL Ratio 5.4 Test 01/08/17 11:31 Range/Units Bedside Glucose 168 70-90 mg/dl
[2017-01-08] MEDS ORDERED: ASPEC81 PO (16:25)
--- NOTE | 2017-01-08 16:28 | Discharge Instructions ---
Discharge Instructions Date of Service Jan 08, 2017. Admission Reason for Admission: Chest Pains Discharge Discharge Diagnosis / Problem: Chest Pain,No ACS and Negative DSE,UNCONTROLLED Diabetes Discharge Goals Goal(s): Prevent Disease Progression Activity Recommendations Activity Limitations: resume your previous activity . Instructions / Follow-Up Instructions / Follow-Up Dr Darlene Pickens on 01/12/17 at 11:25 AM,May need appointment with Field Account Manager for better controlled of DM Current Hospital Diet Patient's current hospital diet: AHA Diet (Heart Healthy), Diabetes Type 1 Diet Discharge Diet Recommended Diet: AHA Diet (Heart Healthy), Diabetes Type 1 Diet Pending Studies Studies pending at discharge: no Laboratory Results Hemoglobin A1c Test 01/07/17 18:34 Range/Units Estimated Average Glucose 263 mg/dl Hemoglobin A1c 10.8 H 4.5-5.6 % Lipid Panel Test 01/08/17 08:11 Range/Units Triglycerides Level 246 H 0-150 mg/dl Cholesterol Level 222 H 0-200 mg/dl HDL Cholesterol 41 mg/dl Cholesterol/HDL Ratio 5.4 LDL Cholesterol, Calculated 132 mg/dl Medical Emergencies . Who to Call and When: Medical Emergencies: If at any time you feel your situation is an emergency, please call 911 immediately. . Non-Emergent Contact Non-Emergency issues call your: Primary Care Provider . Past History Medical & Surgical History: (1) Chest pain (2) Hypertensive crisis (3) Diabetes (4) Psoriasis . "Provider Documentation" section prepared by Esteban Myrick. . VTE Core Measure Inpt VTE Proph given/why not?: SCD's
--- NOTE | 2017-01-09 12:55 | Discharge Summary ---
Discharge Summary Date of Service Jan 09, 2017. Discharge Summary Admission Date: January 07, 2017 at 20:20 Discharge Date: Jan 08, 2017 Discharge Disposition: Home Principal Diagnosis: Chest Pain,No ACS and Negative DSE,UNCONTROLLED Diabetes Secondary Diagnoses/Problems: Pleas see H&P and Hospital Progress note Consultations: Cardiology Medication Reconciliation New Medications: Aspirin (Aspirin EC Low Dose) 81 Mg Ectab 81 MG PO DAILY, #1 Continued Medications: Albuterol Hfa (Ventolin Hfa) 200 Puffs/59543 Mcg Aers 2 PUFFS INH QID PRN for SOB/Wheezing Atorvastatin (Lipitor) 40 Mg Tab 40 MG PO DAILY, TAB Insulin Glargine (Lantus) 100 Unit/Ml Inj 50 UNITS SQ HS Insulin Lispro (Human) (Humalog Kwikpen) 100 Unit/Ml Inj 1 DOSE SC ACHS COVERAGE DIRECTED BY SLIDING SCALE Lisinopril (Lisinopril) 5 Mg Tab 5 MG PO DAILY Methotrexate (Methotrexate Sodium) 50 Mg/2 Ml Inj 40 MG INJ WK ADMINISTER EVERY THURSDAY Admission Information HPI (per Admitting provider): DATE OF ADMISSION: 01/07/2017 PRIMARY CARE DOCTOR: Dr. Sin History was obtained from the patient and records. CHIEF COMPLAINT: Chest pain. HISTORY OF PRESENT ILLNESS: Medical history is significant for DM type 1, hypertension, hyperlipidemia, psoriatic arthritis on methotrexate therapy, ongoing tobacco abuse. Patient was playing cards today with a friend. Patient noted left-sided chest discomfort, sharp, going to the left arm. Has dry cough symptoms. No previous episodes. Relief with nitroglycerin. SBP 170s in the ER initially. Patient does not check blood pressures at home. MEDICAL HISTORY: As above. Home Blood sugars 300. SURGICAL HISTORY: Dental surgery. HOME MEDICATIONS: Lisinopril, aspirin, folic acid, betamethasone, Ventolin, Lipitor and methotrexate. ALLERGIES: TO NIACIN. FAMILY HISTORY: Heart disease. PERSONAL AND SOCIAL HISTORY: A cigarette a day. No chronic intake of alcoholic beverages. Unemployed. REVIEW OF SYSTEMS: As per HPI, all other ROS negative. PHYSICAL EXAMINATION: VITAL SIGNS: Blood pressure was noted to be 177/108 later 130/80, pulse rate 96, RR 20 T 37 O2 sats 98 on room air. GENERAL: Slightly anxious, hyposthenic. No respiratory distress. SKIN: Normal color. HEENT: Nixa palpebral conjunctivae. Dry mucosa. NECK: No JVD. Supple. CHEST: Clear to auscultation. HEART: Regular rate and rhythm. ABDOMEN: Soft. EXTREMITIES: No edema, no tenderness. NEUROLOGIC: No gross focality. LABORATORIES: Hemoglobin was noted to be 15.8, hematocrit 45.4 white cell count 10 platelets 399. Sodium 140, potassium 3.3, chloride 100 CO2 32, BUN 7, creatinine 0.8 and glucose was noted to be 317. Troponin 0. D-dimer was normal. Hemoglobin A1c from March 2016 was 12.7. EKG as per my interpretation : T-wave inversions in inferior and anterolateral leads. Chest x-ray : no infiltrate. ASSESSMENT: 1. Chest pain poss from hypertensive urgency ro ACS 2. DM 1 suboptimal control as of recent outpx HgA1c 3. hypokalemia possibly from home insulin tx 4. hyperlipidemia on statin therapy 5. ongoing tobacco abuse 6. psoriatic arthritis on MTRX tx PLAN: Observation PCU continue home ASA for now for CAD prevention until ACS ruled out. facilitate ACEI, may need dose adjustment Follow troponin. drug stress test if AM troponin WNL (px does not think she can run the treadmill ) Cardiology consultation if with troponin elevation. (px's family requesting of [facility] should need arise) replace potassium. Basal insulin, ISS BG goal 140-180. Carb count coverage indicated for suboptimal blood sugar control. px due for HgA1c. Lipid profile. May need diabetic education if HgA1c worse than outpx. PX counseled to stop smoking. DVT prophylaxis, SCDs. Full code. Dictated: 01/07/17 2103 Transcribed: 01/07/17 2218 <Electronically signed by Dharmesh Aquino M.D.> Signed: 01/09/17 1651 ES Dharmesh Aquino M.D. Hospital Course Chest pain poss from hypertensive urgency No more pain since admission Serial Eh and EKG -no ACS S/P Negative DSE :: STRESS STUDY: Normal pharmacologic stress echocardiogram. No echocardiographic or ECG evidence of myocardial ischemia having achieved heart rate adequate for diagnostic purposes. Left Ventricle * The left ventricle is normal in size. * There is mild concentric left ventricular hypertrophy. * Left ventricular systolic function is normal. * Ejection Fraction = 60-65%. * The left ventricular wall motion is normal at rest. * The left ventricular ejection fraction increases normally with stress. The left ventricular end-systolic cavity size reduces post-stress (normal response). The left ventricular wall motion with stress is normal. Discharge home HTN continue home ASA for now for CAD prevention until ACS ruled out. facilitate ACEI, may need dose adjustment BP controlled DM 1 -Uncontrolled ;;[id number] at 10.8 Suboptimal control as of recent outpx HgA1c Basal insulin, ISS BG goal 140-180. Carb count coverage indicated for suboptimal blood sugar control. Hypokalemia possibly from home insulin tx Hyperlipidemia on statin therapy Ongoing tobacco abuse Advised to quit DVT prophylaxis, SCDs. Full code. Total time spent on discharge =35 minutes This includes examination of the patient, discharge planning, medication reconciliation, and communication with other providers. Discharge Instructions Date of Service Jan 08, 2017. Admission Reason for Admission: Chest Pains Discharge Discharge Diagnosis / Problem: Chest Pain,No ACS and Negative DSE,UNCONTROLLED Diabetes Discharge Goals Goal(s): Prevent Disease Progression Activity Recommendations Activity Limitations: resume your previous activity . Instructions / Follow-Up Instructions / Follow-Up Dr Darlene Pickens on 01/12/17 at 11:25 AM,May need appointment with Licensed Midwife for better controlled of DM Current Hospital Diet Patient's current hospital diet: AHA Diet (Heart Healthy), Diabetes Type 1 Diet Discharge Diet Recommended Diet: AHA Diet (Heart Healthy), Diabetes Type 1 Diet Pending Studies Studies pending at discharge: no Laboratory Results Hemoglobin A1c Test 01/07/17 18:34 Range/Units Estimated Average Glucose 263 mg/dl Hemoglobin A1c 10.8 H 4.5-5.6 % Lipid Panel Test 01/08/17 08:11 Range/Units Triglycerides Level 246 H 0-150 mg/dl Cholesterol Level 222 H 0-200 mg/dl HDL Cholesterol 41 mg/dl Cholesterol/HDL Ratio 5.4 LDL Cholesterol, Calculated 132 mg/dl Medical Emergencies . Who to Call and When: Medical Emergencies: If at any time you feel your situation is an emergency, please call 911 immediately. . Non-Emergent Contact Non-Emergency issues call your: Primary Care Provider . Past History Medical & Surgical History: (1) Chest pain (2) Hypertensive crisis (3) Diabetes (4) Psoriasis . "Provider Documentation" section prepared by Esteban Myrick. . VTE Core Measure Inpt VTE Proph given/why not?: SCD's <Electronically signed by Esteban Myrick M.D.> Signed: 01/08/17 0162 Additional Copies To Jassi Sin M.D.
== END 2017-01-08 18:00 | disposition home or self-care (01) ==
LOC: ENRESERVDT → ENRESERVTM → C.EDB 17:57 → C.MED 20:20
PROVIDERS: ADMIT Internal Medicine; ATTEND Internal Medicine
DX: R07.9 Chest pain, unspecified (principal); I16.9 Hypertensive crisis, unspecified; E10.9 Type 1 diabetes mellitus without complications; L40.50 Arthropathic psoriasis, unspecified; F17.210 Nicotine dependence, cigarettes, uncomplicated; Z79.4 Long term (current) use of insulin; Z79.899 Other long term (current) drug therapy; E78.5 Hyperlipidemia, unspecified; E87.6 Hypokalemia

== ENCOUNTER 2017-02-25 17:22 | Emergency (ER) | payer OTHER ==
[~2017-02-25] VITALS: Ht 152.4 cm; Wt 54.7 kg
[~2017-02-25 17:22] MED LIST changes: +ASPEC81 PO; +ATOR-24 PO; -EFFSR75 PO; +INSU100I2 SC; +MTHI50 INJ; +VNTHFA/IN INH
[2017-02-25 17:38] VITALS: Ht 152.4 cm; Wt 54.7 kg
[2017-02-25] MEDS ORDERED: IBUP-1459 PO (17:50)
[2017-02-25] MEDS ORDERED: ASPI81TA28 PO (17:52)
[2017-02-25] MEDS ORDERED: SODIUM CHLORIDE 0.9% 1000ML 1,000 ML IV STA (17:54)
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
[2017-02-25] MEDS ORDERED: OXYCODONE/ACETAMINOPHEN 5-325 TAB PO ONE (18:00)
[2017-02-25] MEDS ORDERED: OPTIRAY 320 IV PRN (18:15)
[2017-02-25 18:32] LABS: BASO % 0.3 %; BASO ABS # 0.02 K/uL (0-0.2); COMPLETE YES; EOS % 2.8 %; HEMATOCRIT 40.5 % (37-47); IG% 0.4 %; LYMPH % 18.3 %; LYMPH ABS # 1.38 K/uL (1.2-3.4); MEAN CELL VOLUME 90.6 fL (80-100); MEAN CORPUSCULAR HEMOGLOBIN 31.5 pg (25-34); MEAN CORPUSCULAR HGB CONC 34.8 g/dl (32-36); MEAN PLATELET VOLUME 10.4 fL (7.4-10.4); NEUT % 74.2 %; PLATELET COUNT 277 K/uL (130-400); RED BLOOD COUNT 4.47 M/uL (4.2-5.4); WHITE BLOOD COUNT 7.56 K/uL (4.8-10.8)
[2017-02-25 18:38] LABS: URINE APPEARANCE CLOUDY (CLEAR); URINE BILIRUBIN NEG (NEG); URINE COLOR YELLOW; URINE EPITHELIAL CELL AUTO >30 /lpf (0-5); URINE NITRITE NEG (NEG); URINE PH 6.5 (4.5-7.5); URINE SPECIFIC GRAVITY > 1.045 (1.000-1.030); UROBILINOGEN NEG (NEG); ZZUR CULT IF INDIC CLEAN CATCH YES
[2017-02-25 18:39] LABS: MANUAL MICROSCOPIC REQUIRED? NO; REVIEW REQ? NO
[2017-02-25 19:04] LABS: BUN/CREATININE RATIO 6.7 (10-20); CALCIUM 9.3 mg/dl (8.5-10.1); CREATININE 0.99 mg/dl (0.60-1.20); POTASSIUM 3.4 mmol/L (3.5-5.1)
[2017-02-25 19:23] LABS: BETA-HYDROXYBUTYRATE 1.07 mg/dL (0.2-2.81)
--- NOTE | 2017-02-25 20:07 | DIAGNOSTIC IMAGING REPORT ---
LEFT HIP UNILATERAL 2 VIEWS CLINICAL HISTORY: L hip pain pain COMPARISON: None. DISCUSSION: The bones and joint spaces appear intact. There is no evidence of fracture, dislocation or bony disease. There is no evidence for soft tissue swelling. IMPRESSION: Negative study. The above report was generated using voice recognition software. It may contain grammatical, syntax or spelling errors. Electronically signed by: Tyrel Levin M.D. 02/25/2017 8:06 PM Dictated Date/Time: 02/25/2017 8:06 PM
--- NOTE | 2017-02-25 20:07 | DIAGNOSTIC IMAGING REPORT ---
RIGHT WRIST MIN 3 VIEWS ROUTINE CLINICAL HISTORY: r wrist injury Right trauma. Pain. COMPARISON: None. DISCUSSION: The bones and joint spaces appear intact. There is no evidence of fracture, dislocation or bony disease. There is no evidence for soft tissue swelling. IMPRESSION: Negative study. The above report was generated using voice recognition software. It may contain grammatical, syntax or spelling errors. Electronically signed by: Tyrel Levin M.D. 02/25/2017 8:06 PM Dictated Date/Time: 02/25/2017 8:05 PM
--- NOTE | 2017-02-25 20:08 | DIAGNOSTIC IMAGING REPORT ---
LEFT KNEE 1 OR 2 VIEWS ROUTINE CLINICAL HISTORY: L knee pain trauma COMPARISON: None. DISCUSSION: The bones and joint spaces appear intact. There is no evidence of fracture, dislocation or bony disease. There is no evidence for soft tissue swelling. IMPRESSION: Negative study. The above report was generated using voice recognition software. It may contain grammatical, syntax or spelling errors. Electronically signed by: Tyrel Levin M.D. 02/25/2017 8:07 PM Dictated Date/Time: 02/25/2017 8:06 PM
--- NOTE | 2017-02-25 20:09 | DIAGNOSTIC IMAGING REPORT ---
L-SPINE MIN 4 VIEWS ROUTINE HISTORY: low back pain COMPARISON: None. FINDINGS: There is no fracture. No subluxation. Disc spaces are preserved. IMPRESSION: No fracture or subluxation within the lumbar spine. The above report was generated using voice recognition software. It may contain grammatical, syntax or spelling errors. Electronically signed by: Tyrel Levin M.D. 02/25/2017 8:07 PM Dictated Date/Time: 02/25/2017 8:07 PM
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
[2017-02-25] MEDS ORDERED: NovoLIN-R INSULIN PER UNIT CHARGE SC STA (20:43)
[2017-02-25 21:39] VITALS: BP 134/90; PULSE 68; TEMP 36.9; O2SAT 98
--- NOTE | 2017-02-27 12:18 | Pharmacy Progress Note ---
ED Pharmacist Culture FollowUp Date of Service: Feb 27, 2017. Urine Cx (clean catch) from 02/25 is growing >100,000CFU/mL She denied urinary symptoms in ER. No leukocytosis, neutrophilia or fever noted in ER. This cx reflects asymptomatic bacteruria. She is not and no urologic procedure is planned. No abx treatment is indicated.
== END 2017-02-25 21:59 | disposition home or self-care (01) ==
LOC: C.EDB 17:23
DX: T14.8 Other injury of unspecified body region (principal); V89.0XXA Person injured in unspecified motor-vehicle accident, nontraffic, initial encounter; E11.65 Type 2 diabetes mellitus with hyperglycemia; I10 Essential (primary) hypertension; L40.9 Psoriasis, unspecified; Z83.3 Family history of diabetes mellitus; Z82.49 Family history of ischemic heart disease and other diseases of the circulatory system; F17.210 Nicotine dependence, cigarettes, uncomplicated; Z79.82 Long term (current) use of aspirin; Z79.4 Long term (current) use of insulin; Z79.899 Other long term (current) drug therapy

== ENCOUNTER 2017-04-24 17:46 | Emergency (ER) | payer OTHER ==
[~2017-04-24] VITALS: Ht 152.4 cm; Wt 55.1 kg
[~2017-04-24 17:46] MED LIST changes: -ASPEC81 PO; +ASPI81TA28 PO; +IBUP-1459 PO
[2017-04-24 17:48] VITALS: TEMP 36.7; Ht 152.4 cm; Wt 55.1 kg
[2017-04-24] MEDS ORDERED: ALBUTEROL HFA 8 GM INHALER INH ONE (18:15)
--- NOTE | 2017-04-24 18:23 | EMERGENCY ROOM VISIT NOTE ---
History Report prepared by Miranda: Magdiel Logan Under the Supervision of: Dr. Iker Real M.D. First contact with patient: 18:01 Chief Complaint: COUGH Stated Complaint: COUGH,TROUBLE BREATHING History of Present Illness The patient is a 37 year old female who presents to the Emergency Room with complaints of a persistent cough beginning four days ago. She states that her cough is occasionally productive. She has no known history of asthma or breathing problems. The patient has no known cardiac problems. She also complains of shortness of breath. She denies any ear pain. The patient notes that her friend currently has similar symptoms. She has an inhaler at home, but has not used it. She was given the inhaler for similar symptoms. The patient denies any known fevers but states that she has felt a little warm. She has a history of diabetes, but has not checked her blood sugar recently. She states that she has been taking her medications as prescribed. Source of History: patient Onset: Four days ago Quality: other (cough) Timing: other (persistent) Associated Symptoms: + SOB, No fevers (known) Note: The patient denies any ear pain. Review of Systems See HPI for pertinent positives & negatives. A total of 10 systems reviewed and were otherwise negative. Past Medical & Surgical Medical Problems: (1) Cervical muscle strain (2) Chest pain (3) Closed head injury (4) Diabetes (5) Hypertension (6) Psoriasis Family History Diabetes mellitus Hypertension Social History Smoking Status: Current Every Day Smoker Marital Status: single Housing Status: unknown Occupation Status: employed Current/Historical Medications Scheduled Aspirin (Aspirin Ec), 81 MG PO QAM Atorvastatin (Lipitor), 40 MG PO QAM Azithromycin (Zithromax Z-Arnoldo), 0 PO UD Insulin Glargine (Lantus), 50 UNITS SQ HS Insulin Lispro (Human) (Humalog Kwikpen), 1 DOSE SC ACHS Lisinopril (Lisinopril), 5 MG PO QAM Methotrexate (Methotrexate Sodium), 40 MG INJ WK Scheduled PRN Albuterol Hfa (Ventolin Hfa), 2 PUFFS INH QID PRN for SOB/Wheezing Ibuprofen (Motrin), 400 MG PO Q6H PRN for Pain Allergies Coded Allergies: Niacin (Verified Allergy, Unknown, rash, 02/25/17) Physical Exam Vital Signs Date Time Temp Pulse Resp B/P (MAP) Pulse Ox O2 Delivery O2 Flow Rate FiO2 04/24/17 19:58 102 20 106/75 98 Room Air 04/24/17 19:15 103 04/24/17 18:59 100 20 123/82 98 04/24/17 17:48 36.7 103 17 149/94 97 Room Air Physical Exam GENERAL: Patient is in no acute distress. HEENT: No acute trauma, normocephalic atraumatic, mucous membranes moist, mild nasal congestion, mild throat erythema without exudate, no scleral icterus. NECK: No stridor, no adenopathy, no meningismus, trachea is midline. LUNGS: No wheezing or rhonchi. Diminished, but equal bilaterally. HEART: Mildly tachycardic with a 2/6 systolic murmur. Regular rhythm. ABDOMEN: Soft, nontender, bowel sounds positive, no hernias, no peritonitis. EXTREMITIES: No cyanosis or edema, full range of motion of all the joints without pain or difficulty, no signs for acute trauma. NEUROLOGIC: Oriented x 3, no acute motor or sensory deficits, no focal weakness. SKIN: No rash, no jaundice, no diaphoresis. Medical Decision & Procedures ER Provider Diagnostic Interpretation: X-ray results as stated below per interpretation by me and the radiologist: CHEST ONE VIEW PORTABLE FINDINGS: Cardiomediastinal silhouette normal. Lungs and pleural spaces clear. Osseous structures normal. Upper abdomen normal. IMPRESSION: 1. No acute cardiopulmonary disease. Electronically signed by: Varun Zambrano M.D. Laboratory Results 04/24/17 18:48 Red Blood Count 4.52, Mean Corpuscular Volume 90.7, Mean Corpuscular Hemoglobin 30.3, Mean Corpuscular Hemoglobin Concent 33.4, Mean Platelet Volume 10.4, Neutrophils (%) (Auto) 78.3, Lymphocytes (%) (Auto) 14.2, Monocytes (%) (Auto) 5.3, Eosinophils (%) (Auto) 1.7, Basophils (%) (Auto) 0.2, Neutrophils # (Auto) 7.75, Lymphocytes # (Auto) 1.41, Monocytes # (Auto) 0.53, Eosinophils # (Auto) 0.17, Basophils # (Auto) 0.02 04/24/17 18:48 Test 04/24/17 18:48 04/24/17 19:00 04/24/17 19:40 White Blood Count 9.91 K/uL (4.8-10.8) Red Blood Count 4.52 M/uL (4.2-5.4) Hemoglobin 13.7 g/dL (12.0-16.0) Hematocrit 41.0 % (37-47) Mean Corpuscular Volume 90.7 fL (80-100) Mean Corpuscular Hemoglobin 30.3 pg (25-34) Mean Corpuscular Hemoglobin Concent 33.4 g/dl (32-36) Platelet Count 326 K/uL (130-400) Mean Platelet Volume 10.4 fL (7.4-10.4) Neutrophils (%) (Auto) 78.3 % Lymphocytes (%) (Auto) 14.2 % Monocytes (%) (Auto) 5.3 % Eosinophils (%) (Auto) 1.7 % Basophils (%) (Auto) 0.2 % Neutrophils # (Auto) 7.75 K/uL (1.4-6.5) Lymphocytes # (Auto) 1.41 K/uL (1.2-3.4) Monocytes # (Auto) 0.53 K/uL (0.11-0.59) Eosinophils # (Auto) 0.17 K/uL (0-0.5) Basophils # (Auto) 0.02 K/uL (0-0.2) RDW Standard Deviation 40.0 fL (36.4-46.3) RDW Coefficient of Variation 12.0 % (11.5-14.5) Immature Granulocyte % (Auto) 0.3 % Immature Granulocyte # (Auto) 0.03 K/uL (0.00-0.02) Anion Gap 6.0 mmol/L (3-11) Est Creatinine Clear Calc Drug Dose 64.4 ml/min Estimated GFR () 90.5 Estimated GFR (Non- 78.1 BUN/Creatinine Ratio 9.6 (10-20) Calcium Level 9.3 mg/dl (8.5-10.1) Total Bilirubin 0.4 mg/dl (0.2-1) Aspartate Amino Transf (AST/SGOT) 9 U/L (15-37) Alanine Aminotransferase (ALT/SGPT) 17 U/L (12-78) Alkaline Phosphatase 85 U/L (45-117) Total Protein 7.3 gm/dl (6.4-8.2) Albumin 3.5 gm/dl (3.4-5.0) Globulin 3.8 gm/dl (2.5-4.0) Albumin/Globulin Ratio 0.9 (0.9-2) Beta-Hydroxybutyric Acid 1.07 mg/dL (0.2-2.81) Human Chorionic Gonadotropin, Qual NEG (NEG) Chemistry Specimen Hemolysis Urine Color YELLOW Urine Appearance TURBID (CLEAR) Urine pH 5.5 (4.5-7.5) Urine Specific [place] 1.045 (1.000-1.030) Urine Protein NEG (NEG) Urine Glucose (UA) 3+ (NEG) Urine Ketones NEG (NEG) Urine Occult Blood NEG (NEG) Urine Nitrite POS (NEG) Urine Bilirubin NEG (NEG) Urine Urobilinogen NEG (NEG) Urine Leukocyte Esterase NEG (NEG) Urine WBC (Auto) >30 /hpf (0-5) Urine RBC (Auto) 0-4 /hpf (0-4) Urine Hyaline Casts (Auto) 1-5 /lpf (0-5) Urine Epithelial Cells (Auto) >30 /lpf (0-5) Urine Bacteria (Auto) 4+ (NEG) Urine Yeast (Auto) BUDDING (NONE PRSENT) Bedside Glucose 237 mg/dl (70-90) Laboratory results reviewed by me. Medications Administered Medications (Trade) Dose Ordered Sig/Cathie Route Start Time Stop Time Status Last Admin Dose Admin Albuterol (Ventolin Hfa Inhaler) 3 puffs NOW ONCE INH 04/24/17 18:15 04/24/17 18:16 DC 04/24/17 18:23 3 PUFFS Sodium Chloride 500 ml @ 999 mls/hr Q31M STAT IV 04/24/17 18:36 04/24/17 19:06 DC 04/24/17 18:57 999 MLS/HR Insulin Human Regular (novoLIN-R U-100 PER UNIT) 10 units NOW STAT IV 04/24/17 18:36 04/24/17 18:39 DC 04/24/17 18:57 10 UNITS Azithromycin (Zithromax Tab) 500 mg NOW STAT PO 04/24/17 19:05 04/24/17 19:06 DC 04/24/17 19:29 500 MG ECG Indication: SOB/dyspnea Rate (beats per minute): 99 Rhythm: normal sinus Findings: T-wave inversion (Inferior), other (No obvious acute ischemic change) Comparison ECG Date: January 08, 2017 Change: T-wave inversions are more pronounced. ED Course 1801: The patient was evaluated in room C8. A complete history and physical exam was performed. 1814: Ordered Ventolin Hfa Inhaler 3 puffs INH. 1835: Ordered Novolin-R U-100 per unit 10 units IV, Sodium Chloride 500 ml @ 999 mls/hr IV. 1904: Ordered Zithromax 500 mg PO. 1954: Reevaluated the patient. Discussed results and discharge instructions: she verbalized understanding and agreement. The patient is ready for discharge. Medical Decision The patient is a 37 year old female who presents to the ED with complaints of a persistent cough. Differential diagnoses considered include pneumonia, bronchitis, CHF, pneumothorax, pharyngitis, sinusitis, and URI. There is no leukocytosis or concerning anemia. Blood sugar is quite high at over 400, there was no acidosis to suggest DKA. There was no hepatitis. Chest film does not show pneumonia, pneumothorax or CHF. EKG shows a sinus rhythm, there were some nonspecific ST changes, no acute ischemia. Urinalysis shows contamination versus infection, a urine culture is pending. The patient received IV saline, IV insulin. She was given albuterol via MDI. She received oral Zithromax. Blood sugar is now in the 200s. The patient likely has an acute bronchitis, the high sugar is a separate issue and I suspect there is some noncompliance present. She has not been checking her sugar. The patient is not hypoxic, she is stable for discharge. I believe she has acute bronchitis. She is being discharged on albuterol, rest, hydration. She needs to keep a better watch on her blood sugar. She will be on Zithromax. We will call her if the urine culture results demonstrated the need for treatment. Medication Reconcilliation Current Medication List: was personally reviewed by me Blood Pressure Screening Patient's blood pressure: Elevated blood pressure Blood pressure disposition: Elevated BP felt to be situational Impression Primary Impression: Acute bronchitis Additional Impressions: Cough Hyperglycemia Scribe Attestation The scribe's documentation has been prepared under my direction and personally reviewed by me in its entirety. I confirm that the note above accurately reflects all work, treatment, procedures, and medical decision making performed by me. Departure Information Dispostion Home / Self-Care Prescriptions Azithromycin (ZITHROMAX Z-ARNOLDO) 250 Mg Tab 0 PO UD, #1 PKT Prov: Iker Real M.D. 04/24/17 Referrals Jassi Sin M.D. (PCP) Forms HOME CARE DOCUMENTATION FORM, IMPORTANT VISIT INFORMATION Patient Instructions My [facility] Additional Instructions albuterol 3 puffs every 6 hours rest fluids keep a watch on your blood pressure return if worsening or not improving zpac as directed Problem Qualifiers
[2017-04-24] MEDS ORDERED: NovoLIN-R INSULIN PER UNIT CHARGE IV STA (18:36)
[2017-04-24] MEDS ORDERED: SODIUM CHLORIDE 0.9% 500ML 500 ML IV STA (18:36)
--- NOTE | 2017-04-24 18:39 | DIAGNOSTIC IMAGING REPORT ---
CHEST ONE VIEW PORTABLE CLINICAL HISTORY: 37 years-old Female presenting with cough. TECHNIQUE: Portable upright AP view of the chest was obtained. COMPARISON: 01/07/2017. FINDINGS: Cardiomediastinal silhouette normal. Lungs and pleural spaces clear. Osseous structures normal. Upper abdomen normal. IMPRESSION: 1. No acute cardiopulmonary disease. Electronically signed by: Varun Zambrano M.D. 04/24/2017 6:37 PM Dictated Date/Time: 04/24/2017 6:37 PM
[2017-04-24 18:59] LABS: BASO % 0.2 %; BASO ABS # 0.02 K/uL (0-0.2); COMPLETE YES; EOS % 1.7 %; IG% 0.3 %; LYMPH % 14.2 %; LYMPH ABS # 1.41 K/uL (1.2-3.4); MEAN CELL VOLUME 90.7 fL (80-100); MEAN CORPUSCULAR HEMOGLOBIN 30.3 pg (25-34); MEAN CORPUSCULAR HGB CONC 33.4 g/dl (32-36); MEAN PLATELET VOLUME 10.4 fL (7.4-10.4); MONO % 5.3 %; NEUT % 78.3 %; PLATELET COUNT 326 K/uL (130-400); RED BLOOD COUNT 4.52 M/uL (4.2-5.4); WHITE BLOOD COUNT 9.91 K/uL (4.8-10.8)
[2017-04-24] MEDS ORDERED: AZITHROMYCIN 250 MG TAB PO STA (19:05)
[2017-04-24 19:23] LABS: ALB/GLOB RATIO 0.9 (0.9-2); BUN/CREATININE RATIO 9.6 (10-20); CALCIUM 9.3 mg/dl (8.5-10.1); CREATININE 0.94 mg/dl (0.60-1.20); POTASSIUM 3.9 mmol/L (3.5-5.1)
[2017-04-24 19:25] LABS: PREG INTERNAL NEGATIVE QC NEG CLEAR BACKGROUND; PREG INTERNAL POSITIVE QC POS CONTROL LINE
[2017-04-24 19:33] LABS: URINE APPEARANCE TURBID (CLEAR); URINE BILIRUBIN NEG (NEG); URINE COLOR YELLOW; URINE EPITHELIAL CELL AUTO >30 /lpf (0-5); URINE NITRITE POS (NEG); URINE PH 5.5 (4.5-7.5); URINE SPECIFIC GRAVITY 1.045 (1.000-1.030); UROBILINOGEN NEG (NEG)
[2017-04-24 19:34] LABS: MANUAL MICROSCOPIC REQUIRED? NO; REVIEW REQ? YES
[2017-04-24 19:36] LABS: BETA-HYDROXYBUTYRATE 1.07 mg/dL (0.2-2.81)
[2017-04-24] MEDS ORDERED: AZITTAB PO (19:56)
[2017-04-24 19:58] VITALS: BP 106/75; PULSE 102; O2SAT 98
== END 2017-04-24 20:04 | disposition home or self-care (01) ==
LOC: C.EDB 17:47 → C.EDC 20:04
DX: J20.9 Acute bronchitis, unspecified (principal); E11.65 Type 2 diabetes mellitus with hyperglycemia; I10 Essential (primary) hypertension; L40.9 Psoriasis, unspecified; Z83.3 Family history of diabetes mellitus; Z82.49 Family history of ischemic heart disease and other diseases of the circulatory system; F17.210 Nicotine dependence, cigarettes, uncomplicated; Z79.82 Long term (current) use of aspirin; Z79.4 Long term (current) use of insulin; Z79.899 Other long term (current) drug therapy